=== PATIENT | female | born 1945 | race Caucasian/White ===

== ENCOUNTER 2020-11-09 09:31 | Outpatient (CLI) | payer MEDICARE, OTHER | END 2020-11-09 09:32 | disposition home or self-care (01) | LOC: CSHRAD 09:31 | PROVIDERS: ATTEND Internal Medicine | DX: R13.10 Dysphagia, unspecified (principal); K22.8 Other specified diseases of esophagus; K22.2 Esophageal obstruction | CPT/HCPCS: 74220 ==

== ENCOUNTER 2020-12-27 06:57 | Day surgery (SDC) | payer MEDICARE, OTHER ==
[2020-12-26 09:40] VITALS: BMI 31.7
[~2020-12-27 06:57] MED LIST: Lidocaine 1% MPF 2 ML VIAL ONE
[2020-12-27] MEDS ORDERED: PROPOFOL 40 ML ONE (08:09)
[2020-12-27] MEDS ORDERED: Midazolam HCl 2 mg/2 ml Vial ONE (08:09)
== END 2020-12-27 09:40 | disposition home or self-care (01) ==
LOC: CSHSDC 06:57
PROVIDERS: ATTEND Internal Medicine Gastroenterology
PROC: 0D758ZZ Dilation of Esophagus, Via Natural or Artificial Opening Endoscopic (ICD-10-PCS; principal; 2020-12-27)
PROC: 0DB78ZZ Excision of Stomach, Pylorus, Via Natural or Artificial Opening Endoscopic (ICD-10-PCS; 2020-12-27)
DX: R13.10 Dysphagia, unspecified (principal); K21.00 Gastro-esophageal reflux disease with esophagitis, without bleeding; K29.30 Chronic superficial gastritis without bleeding; K31.7 Polyp of stomach and duodenum; I10 Essential (primary) hypertension; E03.9 Hypothyroidism, unspecified; E78.5 Hyperlipidemia, unspecified; F41.8 Other specified anxiety disorders; I25.10 Atherosclerotic heart disease of native coronary artery without angina pectoris; G47.30 Sleep apnea, unspecified; K44.9 Diaphragmatic hernia without obstruction or gangrene; K25.9 Gastric ulcer, unspecified as acute or chronic, without hemorrhage or perforation
CPT/HCPCS: 88305; J2250; J2704

== ENCOUNTER 2022-07-10 09:18 | Outpatient (CLI) | payer MEDICARE, OTHER | END 2022-07-10 09:19 | disposition home or self-care (01) | LOC: CSHMAMMO 09:18 | PROVIDERS: ATTEND Internal Medicine | DX: Z12.31 Encounter for screening mammogram for malignant neoplasm of breast (principal); Z85.850 Personal history of malignant neoplasm of thyroid | CPT/HCPCS: 77063; 77067 ==

== ENCOUNTER 2022-08-13 06:08 | Day surgery (SDC) | payer MEDICARE, OTHER ==
[2022-08-12 10:20] VITALS: BMI 31.7
[2022-08-13] MEDS ORDERED: PROPOFOL 40 ML ONE (08:08)
[2022-08-13] MEDS ORDERED: Lidocaine 1% PF 5 ML VIAL ONE (08:08)
== END 2022-08-13 09:23 | disposition home or self-care (01) ==
LOC: CSHSDC 06:08
PROVIDERS: ATTEND Internal Medicine Gastroenterology
PROC: 0DJD8ZZ Inspection of Lower Intestinal Tract, Via Natural or Artificial Opening Endoscopic (ICD-10-PCS; principal; 2022-08-13)
DX: Z12.11 Encounter for screening for malignant neoplasm of colon (principal); K57.30 Diverticulosis of large intestine without perforation or abscess without bleeding; K64.9 Unspecified hemorrhoids; K59.09 Other constipation; Z80.0 Family history of malignant neoplasm of digestive organs; I10 Essential (primary) hypertension; E78.5 Hyperlipidemia, unspecified; E03.9 Hypothyroidism, unspecified; K21.9 Gastro-esophageal reflux disease without esophagitis; Z88.8 Allergy status to other drugs, medicaments and biological substances
CPT/HCPCS: J2704

== ENCOUNTER 2023-05-13 08:37 | Emergency (ER) | payer MEDICARE, OTHER ==
[2023-05-13 09:17] LABS: #Basophils 0.1 10x3/uL (0.0-0.2); #Eosinphils 0.4 10x3/uL (0.0-0.5); #Monocytes 0.8 10x3/uL (0.0-1.1); #Neutrophils 3.4 10x3/uL (1.5-8.4); %Basophils 0.8 % (0.0-2.0); %Eosinophils 6.6 % (0.0-6.0); %Lymphocytes 27.1 % (18.0-47.0); %Monocytes 11.9 % (0.0-10.0); %Neutrophils 53.4 % (40.0-75.0); Hematocrit 38.8 % (34.9-44.5); Hemoglobin 13.1 g/dL (12.0-15.5); Mean Corpuscular HGB CONC 33.8 g/dL (32.0-36.0); Mean Corpuscular Hemoglobin 30.4 pg (27.0-33.0); Mean Platelet Volume 10.2 fl (7.4-10.4); Platelet Count 207 10x3/uL (150-450); RBC Distribution Width 12.2 % (11.5-14.5); Red Blood Cell (RBC) Count 4.31 10x6/uL (3.90-5.03); White Blood Cell (WBC) Count 6.4 10x3/uL (3.5-10.5)
[2023-05-13 09:21] LABS: ALT (SGPT) 19 U/L (8-55); AST (SGOT) 21 U/L (5-34); Albumin 4.2 g/dL (3.4-4.8); Alkaline Phosphatase 85 U/L (40-110); Anion Gap 13 mmol/L (10-20); BUN (Urea Nitrogen) 14 mg/dL (9.8-20.1); Bilirubin, Total 0.6 mg/dL (0.2-1.2); Calc. Creatinine Clearance 0 mL/min (70-130); Calcium 9.2 mg/dL (7.8-10.44); Carbon Dioxide 26 mmol/L (23-31); Chloride 104 mmol/L (98-107); Estimated GFR 62; Globulin 2.4 g/dL (2.4-3.5); Glucose 92 mg/dL (83-110); Potassium 3.8 mmol/L (3.5-5.1); Protein, Total 6.6 g/dL (5.8-8.1); Sodium 139 mmol/L (136-145)
[2023-05-13 09:24] LABS: Troponin I Less than 0.010 ng/mL (< 0.028)
[2023-05-13] MEDS ORDERED: Lidocaine 1% PF 5 ML VIAL ONE ×2 (10:52→10:53)
== END 2023-05-13 11:56 | disposition home or self-care (01) ==
LOC: CSHERS 08:37
DX: S01.81XA Laceration without foreign body of other part of head, initial encounter (principal); E03.9 Hypothyroidism, unspecified; I10 Essential (primary) hypertension; Z79.899 Other long term (current) drug therapy; Z79.82 Long term (current) use of aspirin; W18.30XA Fall on same level, unspecified, initial encounter
CPT/HCPCS: 12011; 70450; 70486; 72125; 76377; 80053; 84484; 85025; 93005

== ENCOUNTER 2023-07-31 13:37 | Outpatient (CLI) | payer MEDICARE, OTHER | END 2023-07-31 13:38 | disposition home or self-care (01) | LOC: CSHMAMMO 13:37 | PROVIDERS: ATTEND Internal Medicine | DX: Z12.31 Encounter for screening mammogram for malignant neoplasm of breast (principal) | CPT/HCPCS: 77063; 77067 ==

== ENCOUNTER 2024-07-08 10:15 | Outpatient (CLI) | payer MEDICARE, OTHER | END 2024-07-08 10:16 | disposition home or self-care (01) | LOC: CSHMAMMO 10:15 | PROVIDERS: ATTEND Internal Medicine | DX: E21.3 Hyperparathyroidism, unspecified (principal) | CPT/HCPCS: 77080 ==

== ENCOUNTER 2024-08-08 09:30 | Outpatient (CLI) | payer MEDICARE, OTHER | END 2024-08-08 09:31 | disposition home or self-care (01) | LOC: CSHMAMMO 09:30 | PROVIDERS: ATTEND Internal Medicine | DX: Z12.31 Encounter for screening mammogram for malignant neoplasm of breast (principal); Z85.850 Personal history of malignant neoplasm of thyroid | CPT/HCPCS: 77063; 77067 ==